=== PATIENT | female | born 1980 | race African-American/Black ===

== ENCOUNTER 2017-03-18 20:49 | Emergency (ER) | payer MEDICAID ==
[~2017-03-18] VITALS: Ht 165.1 cm; Wt 84.8 kg
[2017-03-18 21:12] VITALS: BP 129/89
[2017-03-19] MEDS ORDERED: cefTRIAXone SODIUM 250 MG VL IM ONE (00:15)
== END 2017-03-19 01:04 | disposition home or self-care (01) ==
LOC: ER 20:59
DX: J02.9 Acute pharyngitis, unspecified (principal); Z20.2 Contact with and (suspected) exposure to infections with a predominantly sexual mode of transmission; F17.210 Nicotine dependence, cigarettes, uncomplicated
CPT/HCPCS: 96372; 99283; J0696